=== PATIENT | male | born 1980 | race African-American/Black ===

== ENCOUNTER 2016-08-31 02:10 | Emergency (ER) | payer SELFPAY ==
[~2016-08-31] VITALS: Ht 170.2 cm; Wt 92.8 kg
[2016-08-31 02:14] VITALS: TEMP 37.1; Ht 170.2 cm; Wt 92.8 kg
--- NOTE | 2016-08-31 02:39 | EMERGENCY ROOM VISIT NOTE ---
History Report prepared by Luciaiblincoln: Ary Urbano Under the Supervision of: Dr. Romina Gerard D.O. First contact with patient: 02:22 Chief Complaint: THROAT PAIN/INJURY Stated Complaint: THROAT-FEELS LIKE SOMETHING IS IN THROAT History of Present Illness The patient is a 36 year old male who presents to the Emergency Room with complaints of constant throat pain beginning 2 days prior to arrival. The patient states that he feels like he had trouble swallowing and experienced choking sensation when drinking fluids. He had less difficulty with food. The patient has noticed white dots on the side of his mouth and tongue. The patient experienced left side calf tenderness when walking 2 days ago. He denies recent weight loss. He denies any other symptoms at this time. 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 He notes left calf pain with walking. Review of Systems See HPI for pertinent positives & negatives. A total of 10 systems reviewed and were otherwise negative. Past Medical & Surgical Medical Problems: (1) Asthma (2) Asthma exacerbation (3) Asthma exacerbation (4) Laceration (5) Laceration Family History No significant family history Social History Smoking Status: Never Smoker Alcohol Use: none Marital Status: in relationship Occupation Status: employed Current/Historical Medications Scheduled Nystatin (Nystatin Suspension), 4-6 ML PO QID Scheduled PRN Albuterol Hfa (Ventolin Hfa), 2-4 PUFFS INH Q6H PRN for SOB/Wheezing Allergies Coded Allergies: No Known Allergies (Unverified , NONE, 08/31/16) Physical Exam Vital Signs Date Time Temp Pulse Resp B/P Pulse Ox O2 Delivery O2 Flow Rate FiO2 08/31/16 04:10 58 18 126/87 98 08/31/16 02:18 97 Room Air 08/31/16 02:14 37.1 54 18 134/86 97 Room Air Physical Exam HEENT: Head - normocephalic and atraumatic Pupils are equal, round, and reactive to light. Extraocular eye muscles are intact, and sclera are anicteric. Nose - moist nasal mucosa without discharge. Mouth - yeast about buccal mucosa and posterior tongue. Oropharynx is nonerythematous and there is no tonsillar exudate or edema noted. Neck: Supple; no JVD, nuchal rigidity, cervical lymphadenopathy. Heart: Regular rate and rhythm. There is a normal S1 and S2 with no murmurs, clicks, or gallops appreciated. Lungs: Clear to auscultation bilaterally with no wheezes, rales, or rhonchi. Abdomen: Soft, completely nontender, nondistended, with good bowel sounds. There are no palpable pulsatile masses or hepatosplenomegaly. There is no guarding, rigidity, or rebound noted. : Pedunculated legions on shaft of penis, nothing on head of penis. Extremities: No evidence of cyanosis, clubbing, or edema. There are easily palpable peripheral pulses. Skin: warm and dry with good turgor and no rashes. Medical Decision & Procedures Laboratory Results Test 08/31/16 02:46 08/31/16 03:30 08/31/16 03:40 08/31/16 03:50 Bedside Glucose 82 mg/dl (70-99) Rapid Plasma Reagin NONREACTIVE (NONREACT) Laboratory results per my review. ED Course 0231: Past medical records reviewed. The patient was evaluated in room B2. A complete history and physical exam was performed. A blood sugar was obtained and was 82. 0319: The patient has been experiencing painful bumps to his penis. He had a UTI in June but was not checked for STIs. I evaluated the genitourinary symptoms. I did take a herpes culture from one of the pedunculated lesions on the penis. He also gave urine specimen to test for GC and Chlamydia. Laboratory studies were drawn for syphilis. 0403: Upon reevaluation, hemodynamically stable. I discussed findings and results with the patient. He verbalized agreement of the treatment plan. He was discharged home. Medical Decision The patient is a 36 year old male who presents to the ED with throat pain. Differential diagnosis includes pharyngitis, tonsillitis, GERD, thrush, sexually transmitted infections. The patient does have a steroid inhaler for his asthma but has not used it a couple of months. The patient has thrush on physical exam. I've prescribed nystatin suspension for swish and swallow. I've asked the patient to follow-up in 48 hours. The results of his testing. Impression Primary Impression: Thrush Scribe Attestation The scribe's documentation has been prepared under my direction and personally reviewed by me in its entirety. I confirm that the note above accurately reflects all work, treatment, procedures, and medical decision making performed by me. Departure Information Dispostion Home / Self-Care Prescriptions Nystatin (Nystatin Suspension) 1 Ml Susp 4-6 ML PO QID, #200 ML Prov: Romina Gerard D.O. 08/31/16 Referrals [facility] (PCP) Forms HOME CARE DOCUMENTATION FORM, IMPORTANT VISIT INFORMATION, WORK / SCHOOL INSTRUCTIONS Patient Instructions My [facility], Thrush Oral Additional Instructions Nystatin - 4-6ml swish and swallow every 6 hours for 5-7 days Follow up on Wednesday for test results - [id number] use protection during sex
[2016-08-31] MEDS ORDERED: VNTHFA/IN INH (02:46)
[2016-08-31] MEDS ORDERED: NYSS/ PO (03:58)
[2016-08-31 04:10] VITALS: BP 126/87; PULSE 58; O2SAT 98
[2016-09-02 00:58] LABS: CHLAMYDIA TRACH RNA*** NOT DETECTED (NOT DETECTED); GC (NEIS GONORRHOEAE)RNA** NOT DETECTED (NOT DETECTED)
[2016-09-02 14:00] LABS: HERPES SIMPLEX CULT SOURCE GENITAL-LESION PENIL; HERPES SIMPLEX VIRUS CULT NOT ISOLATED (NOT ISOLATED)
== END 2016-08-31 04:11 | disposition home or self-care (01) ==
LOC: C.EDB 02:11
DX: B37.0 Candidal stomatitis (principal); L98.9 Disorder of the skin and subcutaneous tissue, unspecified; J45.909 Unspecified asthma, uncomplicated; Z87.440 Personal history of urinary (tract) infections

== ENCOUNTER 2017-08-24 10:30 | Emergency (ER) | payer SELFPAY ==
[~2017-08-24] VITALS: Ht 167.6 cm; Wt 83.0 kg
[~2017-08-24 10:30] MED LIST: NYSS/ PO; VNTHFA/IN INH
[2017-08-24 10:44] VITALS: TEMP 36.6; Ht 167.6 cm; Wt 83.0 kg
--- NOTE | 2017-08-24 12:54 | DIAGNOSTIC IMAGING REPORT ---
BILATERAL INGUINAL ULTRASONOGRAPHY CLINICAL HISTORY: Inguinal/testicular pain COMPARISON STUDY: No previous studies for comparison. FINDINGS: No ultrasonographic abnormalities were visualized. There is no ultrasonographic evidence of a hernia. There is no pathologic adenopathy. IMPRESSION: No ultrasonographic evidence of inguinal hernia Electronically signed by: Byron Theodore M.D. 08/24/2017 12:53 PM Dictated Date/Time: 08/24/2017 12:51 PM
--- NOTE | 2017-08-24 12:56 | DIAGNOSTIC IMAGING REPORT ---
(TESTICULAR) SCROTUM-CONT CLINICAL HISTORY: 37 years-old Male presenting with Testicular pain. TECHNIQUE: Real-time grayscale and color and spectral Doppler ultrasound imaging of the scrotum was performed. COMPARISON: None. FINDINGS: Right testis: Microlithiasis in the testicular parenchyma with at most 3-4 foci of calcification visible on the single image. Otherwise normal testicular parenchyma. Testis measures 4.4 x 3.3 x 2.7 cm. Normal color Doppler flow and arterial and venous waveforms in the testicular parenchyma. 3 mm epididymal head cyst or spermatocele. Small hydrocele with diffuse low-level internal echoes. No varicocele. Left testis: Microlithiasis in the testicular parenchyma with at most 5-6 foci of calcification visible on a single image. Testis measures 4.7 x 2.8 x 3.2 cm. Normal color Doppler flow and arterial and venous waveforms in the testicular parenchyma. Small hydrocele with diffuse low-level internal echoes. No hydrocele. No varicocele. Symmetric perfusion of the testes. IMPRESSION: 1. No evidence of testicular torsion. 2. Bilateral small hydroceles with diffuse low-level internal echoes suggesting complexity. This appearance is favored to represent inspissated or reactive hydroceles versus less likely pyocele or hematocele. Electronically signed by: Flex Macedo M.D. 08/24/2017 12:55 PM Dictated Date/Time: 08/24/2017 12:52 PM
[2017-08-24 15:19] VITALS: BP 125/87; PULSE 62; O2SAT 98
--- NOTE | 2017-08-24 20:41 | EMERGENCY ROOM VISIT NOTE ---
History First contact with patient: 11:02 Chief Complaint: TESTICULAR PAIN Stated Complaint: SCROTUM HURTS Nursing Triage Summary: pt here with bilateral testicular pain and groin pain x months per pt. pt states has been seen by a few providers with no answer. pt states some lumps on left side of groin. pt states increased pain with coughing. denies any urinary sx or any penile discharge History of Present Illness The patient is a 37 year old male who presents to the Emergency Room with complaints of intermittent bilateral testicular and groin pain for the past 3 months. He also complains of a painful lump on the shaft of his penis. The patient reports that he was seen twice at [facility], and administered a muscular antibiotic. He was encouraged to follow-up with a estate planning paralegal regarding the lump on his penis. He was not referred to urology for his testicular pain and groin pain. The patient denies any history of inguinal hernias. He currently denies any difficulty with urination, and denies any urethral drainage or bleeding. He denies any pain extending into the abdomen or rectal region. He rates his discomfort an 8 out of 10. Review of Systems 10 system review was performed and was negative except for pertinent positives and negatives as indicated in history of present illness Past Medical/Surgical History Medical Problems: (1) Asthma (2) Asthma exacerbation (3) Asthma exacerbation (4) Laceration (5) Laceration Family History No significant family history Social History Smoking Status: Never Smoker Alcohol Use: none Drug Use: none Marital Status: in relationship Occupation Status: employed Current/Historical Medications Scheduled PRN Albuterol Hfa (Ventolin Hfa), 2-4 PUFFS INH Q6H PRN for SOB/Wheezing Physical Exam Vital Signs Date Time Temp Pulse Resp B/P (MAP) Pulse Ox O2 Delivery O2 Flow Rate FiO2 08/24/17 15:19 62 125/87 98 08/24/17 13:13 63 16 104/75 98 Room Air 08/24/17 10:44 36.6 65 16 171/84 96 Room Air Physical Exam CONSTITUTIONAL: Healthy and well nourished. Alert and oriented X 3 with positive affect. She does not appear in any acute distress. HEENT: Normocephalic, atraumatic. Pupils equal, round and reactive. NECK: Full active range of motion without discomfort. RESPIRATORY: Clear to auscultation bilaterally with no wheezing, crackles, rhonchi or stridor. CARDIOVASCULAR: Regular rate and rhythm with no murmurs, rubs or gallops. GASTROINTESTINAL: Bowel sounds present in all quadrants. Abdomen is soft and nontender to palpation. Negative CVA tenderness. No suprapubic tenderness to palpation. GENITOURINARY: Normal circumcised male phallus. The patient does have a few soft flesh colored lesions on the shaft of the penis. There is no overriding erythema or other ulcerations. The patient has no obvious palpable testicular edema or posterior epididymal fullness. No palpable scrotal masses, scrotal thickening or erythema. Patient has no tenderness to palpation through the inguinal regions bilaterally. LYMPHATICS: No inguinal adenopathy appreciated. MUSCULOSKELETAL: Full range of motion of all joints without discomfort. INTEGUMENTARY: No rash or other significant dermatologic conditions noted. NEUROLOGIC: No focal neurologic deficits noted. Medical Decision & Procedures ER Provider Diagnostic Interpretation: Testicular ultrasound report is as follows: (TESTICULAR) SCROTUM-CONT CLINICAL HISTORY: 37 years-old Male presenting with Testicular pain. TECHNIQUE: Real-time grayscale and color and spectral Doppler ultrasound imaging of the scrotum was performed. COMPARISON: None. FINDINGS: Right testis: Microlithiasis in the testicular parenchyma with at most 3-4 foci of calcification visible on the single image. Otherwise normal testicular parenchyma. Testis measures 4.4 x 3.3 x 2.7 cm. Normal color Doppler flow and arterial and venous waveforms in the testicular parenchyma. 3 mm epididymal head cyst or spermatocele. Small hydrocele with diffuse low-level internal echoes. No varicocele. Left testis: Microlithiasis in the testicular parenchyma with at most 5-6 foci of calcification visible on a single image. Testis measures 4.7 x 2.8 x 3.2 cm. Normal color Doppler flow and arterial and venous waveforms in the testicular parenchyma. Small hydrocele with diffuse low-level internal echoes. No hydrocele. No varicocele. Symmetric perfusion of the testes. IMPRESSION: 1. No evidence of testicular torsion. 2. Bilateral small hydroceles with diffuse low-level internal echoes suggesting complexity. This appearance is favored to represent inspissated or reactive hydroceles versus less likely pyocele or hematocele. Abdominal ultrasound does not show any evidence for inguinal hernias. Radiologist report is as follows: BILATERAL INGUINAL ULTRASONOGRAPHY CLINICAL HISTORY: Inguinal/testicular pain COMPARISON STUDY: No previous studies for comparison. FINDINGS: No ultrasonographic abnormalities were visualized. There is no ultrasonographic evidence of a hernia. There is no pathologic adenopathy. IMPRESSION: No ultrasonographic evidence of inguinal hernia ED Course Patient history and physical exam were performed. Nurse's notes were reviewed. Vital signs were reviewed, showing a blood pressure 171/84. The patient refused any analgesics on initial exam. Testicular ultrasound shows probable bilateral testicular hydroceles. No epididymitis noted. Abdominal ultrasound was also performed to show no evidence for inguinal hernias. The patient was provided contact information for Dr. Morgan, urologist for further follow-up. The patient was advised that he could also discuss the penile lesions with him as well. He was instructed to return to the emergency department for any progressively worsening swelling, pain, fever or difficulty with urination. The patient reports that he is currently in the process of establishing insurance, and will be applying for medical assistance. The patient was advised that he would likely need a referral from his new PCP to see urology. He was encouraged to take ibuprofen and Tylenol as needed for pain. He was also encouraged to apply an ice pack and wear an athletic support as needed for additional discomfort. The patient was happy with plan of care, and voiced understanding of all discharge instructions, rating his pain a 3 out of 10 at the conclusion of my exam. Medical Decision [place] Drug Monitoring Program Search Results: patient reviewed within database Medication Reconcilliation Current Medication List: was personally reviewed by me Blood Pressure Screening Patient's blood pressure: Elevated blood pressure Blood pressure disposition: Did not require urgent referral Impression Primary Impression: Bilateral hydrocele Additional Impression: Penile lesion Departure Information Dispostion Home / Self-Care Condition GOOD Referrals Yoav Morgan MD Forms HOME CARE DOCUMENTATION FORM, IMPORTANT VISIT INFORMATION Patient Instructions My [facility] Coherent Path Additional Instructions Intermittently apply ice and wear an athletic support for now. Ibuprofen 800 mg and/or Tylenol 1000 mg every 8 hours. You may also alternate these medications for more effective pain relief: Ibuprofen --4 HRS--> Tylenol --4 HRS--> ibuprofen --4 HRS--> Tylenol .... Follow-up with urology (Dr. Morgan) for further reevaluation and management. You will likely require a referral from your new family doctor. Problem Qualifiers
== END 2017-08-24 15:20 | disposition home or self-care (01) ==
LOC: C.EDB 10:36 → C.EDA 15:20
DX: N43.3 Hydrocele, unspecified (principal); N50.9 Disorder of male genital organs, unspecified; J45.909 Unspecified asthma, uncomplicated